=== PATIENT | male | born 1965 | race Caucasian/White ===

== ENCOUNTER → 2019-06-07 11:36 | Outpatient (CLI) | payer OTHER, SELFPAY ==
--- NOTE | ~2019-06-07 | XR_ITS ---
EXAMINATION: XR chest 2V EXAM DATE: 06/07/2019 11:48 INDICATION: Cough. TECHNIQUE: Frontal and lateral projections of the chest obtained and reviewed. Comparison is made to prior examination from 08/11/2016. FINDINGS: Right middle lobe granuloma. The lungs are otherwise clear. There are no pleural effusions . The cardiomediastinal silhouette is within normal limits. There is no pneumothorax suspected. Th e bones and soft tissues are unremarkable. IMPRESSION: No acute cardiopulmonary findings. Reviewed, dictated and finalized at location A. TH INSURANCE ASSESSOR
== END ==
PROVIDERS: PCP Physician Assistant; Visit Provider Physician Assistant
DX: R05 Cough (principal)
CPT/HCPCS: 71046

== ENCOUNTER 2020-09-24 06:15 | Emergency (ER) | payer OTHER, SELFPAY ==
--- NOTE | ~2020-09-24 | XR_ITS ---
EXAMINATION: XR chest 2V DATE: 09/24/2020 06:54 INDICATION: Chest pain TECHNIQUE: PA and lateral views of the chest are obtained. COMPARISON: 06/07/2019 FINDINGS: The lungs are free of acute opacities. A calcified nodule of the right middle lobe is consi stent with old granulomatous disease. There is no pleural effusion or pneumothorax. The cardiomediast inal silhouette is normal. There is mild thoracic spondylosis. IMPRESSION: 1. No acute cardiopulmonary abnormality. Reviewed, dictated and finalized at location A.
[2020-09-24 06:31] VITALS: BP 176/66; PULSE 82; RESP 16; TEMP 36.6; O2SAT 100
--- NOTE | 2020-09-24 06:43 | ECG_ITS ---
Measurements Intervals [place] Rate: 83 P: 15 OK: 156 QRS: -6 QRSD: 102 T: 10 QT: 353 QTc: 415 Interpretive Statements SINUS RHYTHM INCOMPLETE RIGHT BUNDLE BRANCH BLOCK BASELINE ARTIFACT- I, III, AVR, AVL BORDERLINE ECG Electronically Signed On 09-24-2020 8:19:46 CDT by Gonzalez Broussard D.O.
[2020-09-24 06:51] VITALS: PULSE 80
[2020-09-24 07:02] LABS: Basophils Absolute Auto 0.1 K/mm3 (0.0-0.1); Basophils Percent Auto 1.9 % (0.2-1.2); Eosinophils Absolute Auto 0.2 K/mm3 (0-0.3); Eosinophils Percent Auto 3.6 % (0-4.4); Hematocrit 42.2 % (42.0-52.0); Hemoglobin 14.1 g/dL (14.0-18.0); Immature Granulocyte Absolute 0.05 K/mm3 (0.00-0.031); Immature Granulocyte Percent A 1.2 % (0-0.5); Lymphocytes Absolute Auto 0.98 K/mm3 (0.9-3.2); Lymphocytes Percent Auto 23.3 % (18.3-44.2); Mean Corpuscular HGB Conc 33.4 g/dl (32-36); Mean Corpuscular Hemoglobin 31.5 pg (26-34); Mean Corpuscular Volume 94.2 fl (80-100); Mean Platelet Volume 8.4 fl (7.4-10.4); Monocytes Absolute Auto 0.4 K/mm3 (0.1-0.6); Monocytes Percent Auto 9.3 % (2.6-8.5); Neutrophils Absolute Auto 2.6 K/mm3 (1.3-6.7); Neutrophils Percent Auto 60.7 % (45.5-73.1); Platelet Count Result 236 k/mm3 (150-375); Red Blood Count 4.48 M/mm3 (4.6-6.20); Red Cell Distribution Width 11.9 % (11.5-14.5); White Blood Count 4.2 K/mm3 (4.5-10.0)
[2020-09-24 07:03] LABS: Anion Gap 10 mmol/L (8-16); Blood Urea Nitrogen 13 mg/dL (9-20); Calcium 9.1 mg/dL (8.4-10.2); Carbon Dioxide 25 mmol/L (22-30); Chloride 107 mmol/L (98-107); Estimated CRCL calculation 102 ml/min; Estimated Glomerular Filt Rate > 60; Glucose 95 mg/dL (75-110); Sodium 142 mmol/L (137-145)
[2020-09-24 07:15] LABS: Troponin I < 0.012 ng/mL (0.000-0.034)
[2020-09-24 07:18] LABS: INR 0.9; Prothrombin Time 13.1 Seconds (11.1-14.7)
[2020-09-24 07:19] LABS: Partial Thromboplastin Time 26.4 SECONDS (22.3-36.8)
--- NOTE | 2020-09-24 07:27 | ED.GENADULT ---
HPI - General Adult General Chief complaint: Chest Pain Stated complaint: Chest Pain Time Seen by Provider: 09/24/20 07:06 Source: patient History of Present Illness HPI narrative: Patient is a 55 y/o male complaining of midsternal chest pain since 2:30 AM this morning when he woke up. He describes his pain as a pulled muscle feeling. There is no pain radiation. He rates his pain as 2/10. Movement and turning makes his pain worse. He has no SOB or sweating. He states that he has chronic intermittent left arm numbness due to thoracic outlet syndrome. Related Data Home Medications Medication Instructions Recorded Confirmed losartan 09/24/20 sildenafil 09/24/20 Allergies Allergy/AdvReac Type Severity Reaction Status Date / Time atorvastatin Allergy Intermediate muscle Verified 05/20/20 10:33 aches bee venom protein (honey bee) AdvReac Mild Swelling Verified 05/20/20 10:33 Review of Systems Constitutional: Constitutional: Denies chills, Denies fever(s), Denies headache(s) and Denies weakness Eyes: Eyes: Denies blurry vision ENT: Denies headache(s) and Denies neck pain Cardiovascular: Cardiovascular: Reports chest pain and Denies dyspnea Respiratory: Respiratory: Denies cough and Denies dyspnea Gastrointestinal: Gastrointestinal: Denies abdominal pain, Denies diarrhea, Denies nausea and Denies vomiting Genitourinary: Genitourinary: Denies hematuria and Denies dysuria Musculoskeletal: Musculoskeletal: Denies back pain and Denies neck pain Neurologic: Denies headache(s), Reports numbness (left arm) and Denies weakness [facility] Family History Family History Father Diabetes mellitus Mother Family history of elevated blood lipids Family history of coronary artery disease Grandparent Carcinoma of colon Malignant neoplasm of prostate Other Family history of cardiovascular disease Social History Social History Smoking status: Former smoker Smoking end date: 05/03/93 Alcohol intake: current Exam Const: General: no acute distress and well developed Orientation/consciousness: oriented to person, oriented to place, oriented to time and patient oriented x3 HENMT: Head: normocephalic Ears: external ears normal General nose exam: Normal external nose present Eyes: General: appearance normal, both eyes and all related structures Conjunctivae: conjunctivae normal Neck: Neck: normal visual inspection and full ROM Chest: Chest palpation & inspection: normal inspection of the chest and no tenderness Resp: Effort & Inspection: normal respiratory effort Auscultation: clear to auscultation bilaterally Cardio: Rate: regular rate Rhythm: regular rhythm GI: GI Palp: No abdominal tenderness and Yes Soft to palpation Skin: General skin exam: normal color and turgor normal Neuro: General: oriented to person, oriented to place, oriented to time and patient oriented x3 Cognition (Neuro): normal cognition Extrem: General: normal to inspection, full ROM and no pedal edema Psych: Appearance: grossly normal Mental Status: mental status grossly normal Affect: normal affect Course Vital Signs Vital signs: Vital Signs Temperature 36.6 C 09/24/20 06:31 Pulse Rate 82 09/24/20 06:31 Respiratory Rate 16 09/24/20 06:31 Blood Pressure 176/66 H 09/24/20 06:31 Pulse Oximetry 100 09/24/20 06:31 Temperature 36.6 C 09/24/20 06:31 Pulse Rate 78 09/24/20 10:45 Respiratory Rate 18 09/24/20 10:45 Blood Pressure 149/103 H 09/24/20 10:45 Pulse Oximetry 96 09/24/20 10:45 Medical Decision Making Vital Signs Vital Signs: Vital Signs Temperature 36.6 C 09/24/20 06:31 Pulse Rate 82 09/24/20 06:31 Respiratory Rate 16 09/24/20 06:31 Blood Pressure 176/66 H 09/24/20 06:31 Pulse Oximetry 100 09/24/20 06:31 Temperature 36.6 C 09/24/20 06:31 Pulse
[2020-09-24 08:26] VITALS: BP 139/102; PULSE 78; RESP 24; O2SAT 98
[2020-09-24 08:40] VITALS: BP 162/110; PULSE 84; RESP 19; O2SAT 98
--- NOTE | 2020-09-24 09:11 | PC.NURSE ---
PT TOOK DAILY BLOOD PRESSURE MED PER DR FIDENCIO BARLOW.
[2020-09-24 10:01] VITALS: BP 156/104; PULSE 73; RESP 20; O2SAT 98
[2020-09-24 10:15] LABS: Troponin I < 0.012 ng/mL (0.000-0.034)
[2020-09-24 10:45] VITALS: BP 149/103; PULSE 78; RESP 18; O2SAT 96
== END 2020-09-24 10:48 | disposition home or self-care (01) ==
PROVIDERS: Emergency Medicine; Emergency Provider Emergency Medicine; PCP Family Medicine
DX: R07.2 Precordial pain (principal); I10 Essential (primary) hypertension; Z87.891 Personal history of nicotine dependence; I45.10 Unspecified right bundle-branch block
CPT/HCPCS: 36415; 71046; 80048; 84484; 85025; 85610; 85730; 93005; 99284

== ENCOUNTER 2020-10-23 08:18 | Outpatient (CLI) | payer OTHER, SELFPAY ==
--- NOTE | 2020-10-23 08:38 | EST_ITS ---
Patient Info Name: Cesar Hurtado Age: 55 years : 1965 Gender: Male Ht: 72 in Wt: 190 lbs BSA: 2.10 m2 Exam Date: 10/23/2020 9:01 AM Exam Location: [facility] Stress Patient Status: Outpatient Admit Date: 10/23/2020 Staff Ordering Physician: Noelle Pro DO Attending Provider: Noelle Pro DO Exercise Technologist: Deloris Lyn CT Exercise Physician: Gonzalez Broussard DO Exam Type: CA stress test treadmill Study Info A treadmill exercise stress test was performed. Summary 1. 1. Negative Matias exercise stress test for ischemic ST changes by ECG criteria. 2. 2. Good functional capacity, achieving 12 METs of workload. 3. 3. Appropriate HR response to exercise. 4. 4. Appropriate HR recovery at 1 minute post exercise. 5. 5. No imaging with stress testing. 6. 6. Patient informed of the above results. Protocol: Matias Stress ECG Details Stage: REST Duration (min): 1 min : 21 sec Speed (mph): 0.0 Grade (%): 0 HR (bpm): 79 SBP (mmHg): 122 DBP (mmHg): 89 METS: --- Stage: REST Duration (min): 9 min : 52 sec Speed (mph): 0.0 Grade (%): 0 HR (bpm): 92 SBP (mmHg): 122 DBP (mmHg): 89 METS: --- Stage: STAGE 1 Duration (min): 1 min : 0 sec Speed (mph): 1.7 Grade (%): 10 HR (bpm): 107 SBP (mmHg): 122 DBP (mmHg): 89 METS: --- Stage: STAGE 1 Duration (min): 2 min : 0 sec Speed (mph): 1.7 Grade (%): 10 HR (bpm): 112 SBP (mmHg): 122 DBP (mmHg): 89 METS: --- Stage: STAGE 1 Duration (min): 3 min : 0 sec Speed (mph): 1.7 Grade (%): 10 HR (bpm): 113 SBP (mmHg): 168 DBP (mmHg): 90 METS: --- Stage: STAGE 2 Duration (min): 1 min : 0 sec Speed (mph): 2.5 Grade (%): 12 HR (bpm): 118 SBP (mmHg): 168 DBP (mmHg): 90 METS: --- Stage: STAGE 2 Duration (min): 2 min : 0 sec Speed (mph): 2.5 Grade (%): 12 HR (bpm): 123 SBP (mmHg): 178 DBP (mmHg): 94 METS: --- Stage: STAGE 2 Duration (min): 3 min : 0 sec Speed (mph): 2.5 Grade (%): 12 HR (bpm): 123 SBP (mmHg): 178 DBP (mmHg): 94 METS: --- Stage: STAGE 3 Duration (min): 1 min : 0 sec Speed (mph): 3.4 Grade (%): 14 HR (bpm): 133 SBP (mmHg): 179 DBP (mmHg): 94 METS: --- Stage: STAGE 3 Duration (min): 2 min : 0 sec Speed (mph): 3.4 Grade (%): 14 HR (bpm): 138 SBP (mmHg): 179 DBP (mmHg): 94 METS: --- Stage: STAGE 3 Duration (min): 3 min : 0 sec Speed (mph): 3.4 Grade (%): 14 HR (bpm): 144 SBP (mmHg): 185 DBP (mmHg): 91 METS: --- Stage: STAGE 4 Duration (min): 1 min : 0 sec Speed (mph): 4.2 Grade (%): 16 HR (bpm): 166 SBP (mmHg): 185 DBP (mmHg): 91 METS: --- Stage: STAGE 4 Duration (min): 1 min : 0 sec Speed (mph): 4.2 Grade (%): 16 HR (bpm): 166 SBP
== END 2020-10-23 08:19 | disposition home or self-care (01) ==
PROVIDERS: PCP Family Medicine; Visit Provider Family Medicine
DX: R07.9 Chest pain, unspecified (principal); R20.0 Anesthesia of skin
CPT/HCPCS: 93017

== ENCOUNTER 2020-10-30 07:25 | Outpatient (CLI) | payer OTHER, SELFPAY ==
--- NOTE | 2020-10-30 07:35 | ECHO_ITS ---
Patient Info Name: Cesar Hurtado Age: 55 years : 1965 Gender: Male Ht: 72 in Wt: 190 lbs BSA: 2.10 m2 HR: 70 bpm BP: 130 / 88 mmHg Technical Quality: Good Exam Date: 10/30/2020 7:55 AM Exam Location: [facility] Patient Status: Outpatient Admit Date: 10/30/2020 Staff Ordering Physician: Noelle Pro DO Photographic Equipment Assembler: Alejandro Schaefer RDCS, RT Attending Provider: Noelle Pro DO Referring Physician: Morteza CASTELLANOS; Exam Type: CA echo doppler color flow Study Info Indications R07.9 - Chest pain, unspecified Complete two-dimensional, color flow and Doppler transthoracic echocardiogram is performed. Strain analysis performed. Summary 1. Complete two-dimensional, color flow and Doppler transthoracic echocardiogram is performed. 2. Left ventricular chamber dimension is normal. 3. Left ventricular systolic function is normal, estimated at 60-65%. 4. The left ventricular diastolic function is normal. 5. E/e' 7 is not elevated. 6. Global longitudinal strain is normal at -17.4%. 7. There is trace tricuspid valve regurgitation. 8. No pulmonary hypertension, estimated pulmonary arterial systolic pressure is 24 mmHg. Left Ventricle E/e' 7 is not elevated. Global longitudinal strain is normal at -17.4%. Left ventricular chamber dimension is normal. Left ventricular systolic function is normal, estimated at 60-65%. The left ventricular diastolic function is normal. Right Ventricle Right ventricular systolic function is normal and with normal TAPSE 2.1 cm. Right ventricular chamber dimension is normal. Left Atria Left atrial chamber dimension is normal. Right Atria Right atrial chamber dimension is normal. Aortic Valve The aortic valve is trileaflet. There is no aortic valve stenosis. There is no aortic valve regurgitation. Pulmonic Valve There is no pulmonic regurgitation. Mitral Valve There is no mitral valve stenosis. There is no mitral valve regurgitation. Tricuspid Valve There is trace tricuspid valve regurgitation. No pulmonary hypertension, estimated pulmonary arterial systolic pressure is 24 mmHg. Pericardium/Pleural There is no pericardial effusion. Inferior Vena Cava Normal inferior vena cava with >50% collapse upon inspiration consistent with normal right atrial pressure, 5 mmHg. Aorta The aortic root size at the sinus of Valsalva is normal. Left Ventricular Outflow Tract Name Value Normal LVOT 2D LVOT Diameter 2.0 cm LVOT Doppler LVOT Peak Gradient 4 mmHg LVOT Mean Gradient 2 mmHg LVOT VTI 19 cm LVOT VTI/AV VTI Ratio 0.8 LVOT Stroke Volume 60 ml LVOT CO 4.2 l/min LVOT CI 2.0 l/min/m2 Mitral Valve Name Value Normal MV Doppler ---------
== END 2020-10-30 07:26 | disposition home or self-care (01) ==
PROVIDERS: PCP Family Medicine; Visit Provider Family Medicine
DX: R07.9 Chest pain, unspecified (principal)
CPT/HCPCS: 93306

== ENCOUNTER → 2021-03-01 00:57 | Outpatient (CLI) | payer OTHER, SELFPAY ==
[2021-03-01 18:23] LABS: SARS-CoV-2 RNA PCR Negative
== END ==
PROVIDERS: PCP Family Medicine; Visit Provider Physician Assistant
DX: J06.9 Acute upper respiratory infection, unspecified (principal); Z20.822 Contact with and (suspected) exposure to COVID-19
CPT/HCPCS: C9803; U0003; U0005

== ENCOUNTER → 2021-11-10 09:50 | Outpatient (CLI) | payer OTHER, SELFPAY ==
--- NOTE | ~2021-11-10 | US_ITS ---
US scrotum doppler INDICATION: Orchitis for one and a half months. No known injury. TECHNIQUE: Testicular sonogram utilizing grayscale and color Doppler FINDINGS: The testes are normal in size and appearance. No focal lesions are seen. 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 The right testes measures 4.4 x 2.2 x 2.8 cm centimeters, and the left t estis measures 4.3 x 2.4 x 2.8 cm cm. There is normal vascular flow to both testes. There is a right epididymal cyst measuring 4 mm. There is a small right hydrocele. IMPRESSION: 1. Testicular microlithiasis. 2: Small right epididymal cyst measuring 4 mm. 3: Small right hydrocele. Reviewed, dictated and finalized at location A.
== END ==
PROVIDERS: PCP Family Medicine; Visit Provider Urology
DX: N45.2 Orchitis (principal); N50.89 Other specified disorders of the male genital organs; N50.3 Cyst of epididymis; N43.3 Hydrocele, unspecified
CPT/HCPCS: 76870; 93976

== ENCOUNTER → 2022-05-25 10:27 | Outpatient (CLI) | payer OTHER, SELFPAY ==
--- NOTE | ~2022-05-25 | US_ITS ---
Testicular ultrasound with doppler. Indication: Epididymal cyst. Technique: Real-time sonography the scrotum was performed. Color flow Doppler and Doppler spectral an alysis were performed. Findings: The testes are homogeneous in echotexture bilaterally. There is no evidence of an intrates ticular mass. The right testis measures 4.5 x 2.2 x 3.4 cm and the left 4.2 x 2.5 x 3.2 cm. There is color-flow seen to both testes. Arterial and venous spectral waveforms are seen in both testes. There is no sonographic evidence of torsion. 4 mm right epididymal head cyst present. Left epididymis unre markable. Small right hydrocele present. Impression: 4 mm right epididymal head cyst or spermatocele. Small right hydrocele. No testicular mass or torsion. Reviewed, dictated and finalized at [facility]. BYTERIAN CLERGY Impression: 4 mm right epididymal head cyst or spermatocele. Small right hydrocele. No testicular mass or torsion.
== END ==
PROVIDERS: PCP Family Medicine; Visit Provider Urology
DX: N50.3 Cyst of epididymis (principal); N43.3 Hydrocele, unspecified
CPT/HCPCS: 76870; 93976

== ENCOUNTER → 2022-06-08 15:26 | Outpatient (CLI) | payer OTHER, SELFPAY ==
--- NOTE | ~2022-06-08 | XR_ITS ---
EXAMINATION: XR chest 2V DATE: 06/08/2022 15:35 INDICATION: 2 weeks of cough TECHNIQUE: PA and lateral views of the chest were obtained. COMPARISON: Chest radiograph dated 09/24/2020 FINDINGS: Calcified nodule in the right lower lung zone and calcified right hilar lymph nodes consistent with o ld granulomatous disease. No other airspace opacities, pulmonary edema, pleural effusion or pneumotho rax. The cardiomediastinal silhouette is normal. Visualized bones and soft tissues are unremarkable. IMPRESSION: 1. No acute cardiopulmonary disease. Reviewed, dictated and finalized at location A. WEIGHER
== END ==
PROVIDERS: PCP Family Medicine; Visit Provider Family Medicine
DX: R05.9 Cough, unspecified (principal)
CPT/HCPCS: 71046

== ENCOUNTER 2023-11-05 15:36 | Outpatient (CLI) | payer OTHER, SELFPAY ==
[2023-11-05 18:24] LABS: Basophils Absolute Auto 0.1 K/mm3 (0.0-0.1); Basophils Percent Auto 1.1 % (0.2-1.2); Eosinophils Absolute Auto 0.1 K/mm3 (0-0.3); Eosinophils Percent Auto 0.8 % (0-4.4); Hematocrit 43.2 % (42.0-52.0); Hemoglobin 14.4 g/dL (14.0-18.0); Immature Granulocyte Absolute 0.06 K/mm3 (0.00-0.031); Immature Granulocyte Percent A 0.7 % (0-0.5); Lymphocytes Absolute Auto 1.42 K/mm3 (0.9-3.2); Mean Corpuscular HGB Conc 33.3 g/dl (32-36); Mean Corpuscular Hemoglobin 31.4 pg (26-34); Mean Corpuscular Volume 94.3 fl (80-100); Mean Platelet Volume 8.6 fl (7.4-10.4); Monocytes Absolute Auto 0.9 K/mm3 (0.1-0.6); Monocytes Percent Auto 9.8 % (2.6-8.5); Neutrophils Absolute Auto 6.3 K/mm3 (1.3-6.7); Neutrophils Percent Auto 71.6 % (45.5-73.1); Platelet Count Result 326 k/mm3 (150-375); Red Blood Count 4.58 M/mm3 (4.6-6.20); Red Cell Distribution Width 11.9 % (11.5-14.5); White Blood Count 8.9 K/mm3 (4.5-10.0)
[2023-11-05 19:53] LABS: Folic Acid 16.6 ng/mL (2.76->20)
[2023-11-09 09:19] LABS: Vitamin D 1,25 (OH)2 Total 54 pg/mL (18-72); Vitamin D2 1,25 (OH)2 <8 pg/mL; Vitamin D3 1,25 (OH)2 54 pg/mL
== END 2023-11-05 15:37 | disposition home or self-care (01) ==
LOC: ANHGOSHLAB 15:37
PROVIDERS: PCP Family Medicine; Visit Provider Student in an Organized Health Care Education/Training Program
DX: R20.2 Paresthesia of skin (principal); K13.79 Other lesions of oral mucosa
CPT/HCPCS: 36415; 82607; 82652; 82746; 85025

== ENCOUNTER 2024-04-11 10:35 | Outpatient (CLI) | payer OTHER, SELFPAY ==
--- NOTE | ~2024-04-11 | XR_ITS ---
Thoracic spine: Clinical Indication: Back pain AP and lateral views were performed. No fracture is seen. There is normal alignment of the vertebrae. The intervertebral disc spaces appe ar normal. Paravertebral soft tissues appear normal. Impression: No significant abnormalities noted. Reviewed, dictated and finalized at [facility]. NESS PROCESS MANAGER Impression: No significant abnormalities noted.
--- NOTE | ~2024-04-11 | XR_ITS ---
Lumbosacral Spine: AP and lateral views Clinical History: Pain Findings: The normal lordotic curve is maintained. The vertebral bodies and posterior elements are i ntact. There are mild degenerative disc changes in lumbar spine. There is moderate facet arthropathy throughout the lumbar spine. The sacroiliac joints are normally outlined. Impression: Mild to moderate degenerative spondylosis, as above. Reviewed, dictated and finalized at location . PROCESSING CLERK Impression: Mild to moderate degenerative spondylosis, as above.
== END 2024-04-11 10:36 | disposition home or self-care (01) ==
PROVIDERS: PCP Family Medicine; Visit Provider Nurse Practitioner
DX: M47.816 Spondylosis without myelopathy or radiculopathy, lumbar region (principal); M54.9 Dorsalgia, unspecified; M54.50 Low back pain, unspecified
CPT/HCPCS: 72072; 72100

== ENCOUNTER 2024-08-10 09:24 | Outpatient (CLI) | payer OTHER, SELFPAY ==
--- OUTSIDE RECORDS SUMMARY | 2024-08-10 09:44 | XMS_ITS | Clinical Summary ---
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 Gender Identity Not on file Sexual Orientation Not on file Plan of Treatment Health Maintenance Due Date Last Done Comments Hepatitis C Virus (HCV) Screening 1965 TdaP Immunization 1965 Hepatitis B Immunization (1 of 3 - 19+ 3-dose series) 07/31/1986 Colonoscopy 07/31/2012 Colorectal Cancer Screening 07/31/2012 Cologuard 07/31/2017 Immunochemical Fecal Occult Blood 07/31/2017 Pneumococcal Immunization (5 0+ years) (1 of 1 - PCV) 07/31/2017 Zoster Immunization (1 of 2) 07/31/2017 PSA Discussion 07/31/2022 Influenza Immunization (#1) 01/02/202406/2018, 04/11/2018 SARS-COV-2 Immunization ( season) 2024 Respiratory Syncytial Virus (RSV) Immunization (Adult) (1 - 1-dose 75+ series) 07/31/2042 Meningococcal Immunization (ACWY) Aged Out No longer eligible b ased on patient's age to complete this topic Pneumococcal Immunization Combined Aged Out No longer eligible b ased on patient's age to complete this topic Rotavirus Immunization Aged Out No lo nger eligible based on patient's age to complete this topic
--- OUTSIDE RECORDS SUMMARY | 2024-08-10 09:44 | XMS_ITS | Referral Summary ---
Author Organization [facility] [address] Address [address] [place] [address] Care Team Providers Care Regulatory Lead Name Role Phone Noelle Pro DO Primary Care Provider [phone] Encounters Date Type Department Care Team Description 08/02/2024 5:36 PM CDT - 08/02/2024 9:40 PM CDT Emergency [facility] Emergency Department [address] [place] [address] Hypertension, unspecified type (Primary Dx); Chest pain, unspecified type Discharge Disposition: Discharge to home or self care 05/12/2024 Telephone [facility] [place] [address] [place] [address] Mable Dobbs MA 05/12/2024 10:02 AM MULTI CRAFT MAINTENANCE TECHNICIAN - 05/12/2024 11:59 PM MULTI CRAFT MAINTENANCE TECHNICIAN Hospital Encounter [facility] Imaging Center [address] [place] [address] Fever, unspecified fever cause; Acute cough; Lower respiratory infection Discharge Disposition: Discharge to home or self care 05/12/2024 8:45 AM MULTI CRAFT MAINTENANCE TECHNICIAN Office Visit [facility] [place] [address] Shonda Romo NP Suspected COVID-19 virus infection (Primary Dx); Sore throat; Fever, unspecified fever cause; Acute cough; Lower respiratory infection from Last 3 Months Allergies Active Allergy Reactions Criticality Noted Date Comments Venom-Honey Bee Medications hydroCHLOROthia zide (HYDRODIURIL) 25 mg tablet Take 1 tablet (25 mg total) by mouth daily 03/25/2021 Active losartan (COZAAR) 50 mg tablet Take 1 tablet (50 mg total) by mouth daily 03/25/2021 Active metoprolol XL (TOPROL-XL) 25 mg extended release tablet Take 0.5 tablets (12.5 mg total) by mouth daily 05/13/2021 Active Livalo 2 mg tablet 04/01/2021 Active sildenafiL (VIAGRA) 50 mg tablet 04/20/2021 Active benzonatate (TESSALON) 100 mg capsuleIndicati ons:Cough Take 1 capsule (100 mg total) by mouth 3 (three) times a day as needed for cough 42 capsule 05/12/2024 Active Active Problems Problem Noted Date Diagnosed Date Thoracic outlet syndrome 06/30/2012 Cervicalgia 05/31/2012 Social History Tobacco Use Types Packs/Day Years Used Date Smoking Tobacco: Former Personal Safety Answer Date Recorded Have you ever been in or are you currently in a harmful physical or emotional relationship or is someone making you feel afraid or unsafe? Denies 08/02/2024 Sex and Gender Information Value Date Recorded Sex Assigned at Not on file Legal Sex Male 10:10 AM MULTI CRAFT MAINTENANCE TECHNICIAN Gender Identity Male 05/24/2021 7:54 AM MULTI CRAFT MAINTENANCE TECHNICIAN Sexual Orientation Straight 05/24/2021 7: 54 AM MULTI CRAFT MAINTENANCE TECHNICIAN Last Filed Vital Signs Vital Sign Reading Time Taken Comments Blood Pressure 141/96 08/02/2024 9:35 PM CDT Pulse 75 08/02/2024 9:25 PM CDT Temperature 36.6 C (97.8 F) 08/02/2024 4:10 PM CDT Respiratory Rate 20 08/02/2024 9:25 PM CDT Oxygen Saturation 97% 08/02/2024 9:25 PM CDT Inhaled Oxygen Concentration - - Weight 90.7 kg (200 lb) 08/02/2024 4:10 PM CDT Height 182.9 cm (6') 05/12/2024 8:43 AM MULTI CRAFT MAINTENANCE TECHNICIAN Body Mass Index 27.12 05/12/2024 8:43 AM MULTI CRAFT MAINTENANCE TECHNICIAN Plan of Treatment Not on file Procedures Procedure Name Priority Date/Time Associated Diagnosis Comments TROPONIN T HIGH-SENSITIVITY 4-HR Timed 08/02/2024 8:26 PM CDT TROPONIN T HIGH-SENSITIVITY 2-HOUR Timed 08/02/2024 5:52 PM CDT XR CHEST 1 VIEW ED 08/02/2024 4:25 PM CDT EGFR STAT 08/02/2024 4:21 PM CDT DIFFERENTIAL AUTO STAT 08/02/2024 4:2 1 PM CDT TROPONIN T HIGH-SENSITIVITY SERIES (BASELINE, 2HR, 4HR, 6HR) STAT 08/02/2024 4:21 PM CDT COMPREHENSIVE METABOLIC PANEL STAT 08/02/2024 4:21 PM CDT CBC WITH AUTO DIFFERENTIAL STAT 08/02/2024 4:21 PM CDT ECG 12-LEAD STAT 08/02/2024 4:15 PM CDT XR CHEST PA LATERAL 2 VIEWS Schedule NEVILLE, Read NEVILLE (Appt Today, Awaiting Results) 05/12/2024 10:13 AM MULTI CRAFT MAINTENANCE TECHNICIAN Fever, unspecified fever cause Acute cough Lower respiratory infection POC INFLUENZA A/B, COVID-19 ANTIGEN Routine 05/12/2024 8:55 AM MULTI CRAFT MAINTENANCE TECHNICIAN Suspected COVID-19 virus infection Sore throat POCT RAPID STREP Routine 05/12/2024 8:54 AM MULTI CRAFT MAINTENANCE TECHNICIAN Suspected COVID-19 virus infection Sore throat from Last 3 Months Results * Troponin T high-sensitivity 4-hour (08/02/2024 8:26 PM CDT) Trop T hs <6 <=22 ng/L Comment: Interpretive Data For further hscTnT resources including the diagnostic algorithm and an aid in interpretation, copy and paste this link: https://nrl.YeHive.org/show/hsTrop Current Interpretive Data last revised 2020. Trop T hs delta 0 ng/L [facility] ([place]) Trop T hs interp Insignificant [facility] ([place]) Blood 08/02/2024 8:26 PM CDT 08/02/2024 8:45 PM CDT Moe Carpenter MD LAB BLOOD ORDERABLES Final R esult Performing Organization Address [facility] Co de Phone Number ARNAUD JONES ([place]) 1 [facility] [place] [address] * Troponin T high-sensitivity 2-hour (08/02/2024 5:52 PM CDT) Trop T hs <6 <=22 ng/L Comment: Interpretive Data For further hscTnT resources including the diagnostic algorithm and an aid in interpretation, copy and paste this link: https://nrl.YeHive.org/show/hsTrop Current Interpretive Data last revised 2020. Trop T hs delta 0 ng/L [facility] ([place]) Trop T hs interp Insignificant [facility] ([place]) Blood 08/02/2024 5:52 PM CDT 08/02/2024 5:56 PM CDT Moe Carpenter MD LAB BLOOD ORDERABLES Final R esult Performing Organization Address City/[facility] Co de Phone Number ARNAUD JONES ([place]) 1 [facility] [place] [address] * XR Chest 1 Vw Portable (if patient condition/safety warrant portable) (08/02/2024 4:25 PM CDT) Anatomical Region Laterality Modality Body, Chest N/A Computed Radiogr aphy 08/02/2024 4:52 PM CDT Narrative 08/02/2024 4:53 PM CDT EXAM DESCRIPTION: XR CHEST 1 VIEW REASON FOR STUDY: chest pain Pt states that he has had 4-5 days of mid sternal chest pain. Pt states has appointment tomorrow but today checked bp and it was high TECHNIQUE: 1 radiographic view(s) of the chest. COMPARISON: 05/12/2024 FINDINGS: LUNGS: No focal opacity, pleural effusion, or pneumothorax. HEART/MEDIASTINUM: Cardiac silhouette normal in size. Mediastinal and hilar contours appear normal. LINES/TUBES: None. BONES: No acute osseous abnormality. IMPRESSION: No acute cardiopulmonary abnormality. THIS IS AN ELECTRONICALLY VERIFIED FINAL REPORT 08/02/2024 4:53 PM - Electronically signed by Arnoldo Araiza M.D. KR: HERNAN Report ID: [id number] Reading Location: [id number] Procedure Note Arnoldo Araiza MD - 08/02/2024 EXAM DESCRIPTION: XR CHEST 1 VIEW REASON FOR STUDY: chest pain Pt states that he has had 4-5 days of mid sternal chest pain. Pt stateshas appointment tomorrow but today checked bp and it was high TECHNIQUE: 1 radiographic view(s) of the chest. COMPARISON: 05/12/2024 FINDINGS: LUNGS: No focal opacity, pleural effusion, or pneumothorax. HEART/MEDIASTINUM: Cardiac silhouette normal in size. Mediastinal andhilar contours appear normal. LINES/TUBES: None. BONES: No acute osseous abnormality. IMPRESSION: No acute cardiopulmonary abnormality. THIS IS AN ELECTRONICALLY VERIFIED FINAL REPORT 08/02/2024 4:53 PM - Electronically signed by Arnoldo Araiza M.D. KR: HERNAN Report ID: [id number] Reading Location: [id number] Moe Carpenter MD IMG XR PROCEDURES Final Resu lt * Troponin T high-sensitivity series (baseline, 2hr, 4hr, 6hr) (08/02/2024 4:21 PM CDT) Trop T hs <6 <=22 ng/L Comment: Interpretive Data For further hscTnT resources including the diagnostic algorithm and an aid in interpretation, copy and paste this link: https://nrl.testcatalog.org/show/hsTrop Current Interpretive Data last revised 2020. Blood 08/02/2024 4:21 PM CDT 08/02/2024 4:38 PM CDT Moe Carpenter MD LAB BLOOD ORDERABLES Final R esult Performing Organization Address City/[facility] Co de Phone Number [facility] ([place]) 1 [facility] [place] [address] * eGFR (08/02/2024 4:21 PM CDT) Pathologist [facility] eGFR >90 >=60 mL/min/1. 73 m2 Comment: Interpretive Data Reference Interval Normal >/= 90 mL/min/1.73m2 Mildly decreased* 60 - 89 mL/min/1.73m2 Mildly to moderately decreased 45 - 59 mL/min/1.73m2 Moderately to severely decreased 30 - 44 mL/min/1.73m2 Severely decreased 15 - 29 mL/min/1.73m2 Kidney Failure < 15 mL/min/1.73m2 *Relative to young adult level Estimated glomerular filtration rate is determined by the 2020 CKD-EPI equation recommended by the National Kidney Foundation (A Unifying Approach to GFR Estimation: Recommendations of the NKF-ASK Task Force on Reassessing the Inclusion of Race in Diagnosing Kidney Disease, JASN 2020). The CKD-EPI equation should not be used for patients with unstable renal function and has not been validated in children and those over 70. Current interpretive data was last reviewed 2021. Blood 08/02/2024 4:21 PM CDT 08/02/2024 4:38 PM CDT Moe Carpenter MD LAB BLOOD ORDERABLES Final R esult Performing Organization Address City/[facility]/ZIP Co de Phone Number [facility] ([place]) 1 [facility] Department [place] [address] * (ABNORMAL) Differential, auto (08/02/2024 4:21 PM CDT) Neutrophil abs 4.58 1.50 - 6.50 K/cumm Imm gran abs 0.09 0.00 - 0.10 K/cumm [facility] ([place]) Lymphocyte abs 1.72 0.80 - 3.30 K/cumm [facility] ([place]) Monocyte abs 0.66 0.20 - 0.80 K/cumm [facility] ([place]) Eosinophil abs 0.16 0.00 - 0.50 K/cumm [facility] ([place]) Basophil abs 0.11(H) 0.00 - 0.10 K/cumm [facility] ([place]) Neutrophil pct 62.6 % [facility] ([place]) Comment: Interpretive Data Percent cell count reference ranges are not reported, since discordance with absolute values may lead to misinterpretation of CBC data. Current Interpretive Data was last revised on 2017. Imm gran pct 1.2 % [facility] ([place]) Comment: Interpretive Data Percent cell count reference ranges are not reported, since discordance with absolute values may lead to misinterpretation of CBC data. Current Interpretive Data was last revised on 2017. Lymphocyte pct 23.5 % [facility] ([place]) Comment: Interpretive Data Percent cell count reference ranges are not reported, since discordance with absolute values may lead to misinterpretation of CBC data. Current Interpretive Data was last revised on 2017. Monocyte pct 9.0 % [facility] ([place]) Comment: Interpretive Data Percent cell count reference ranges are not reported, since discordance with absolute values may lead to misinterpretation of CBC data. Current Interpretive Data was last revised on 2017. Eosinophil pct 2.2 % [facility] ([place]) Comment: Interpretive Data Percent cell count reference ranges are not reported, since discordance with absolute values may lead to misinterpretation of CBC data. Current Interpretive Data was last revised on 2017. Basophil pct 1.5 % [facility] ([place]) Comment: Interpretive Data Percent cell count reference ranges are not reported, since discordance with absolute values may lead to misinterpretation of CBC data. Current Interpretive Data was last revised on 2017. Blood 08/02/2024 4:21 PM CDT 08/02/2024 4:38 PM CDT Moe Carpenter MD LAB BLOOD ORDERABLES Final R esult [facility] ([place]) 1 [facility] [place] [address] * (ABNORMAL) CBC with auto differential (08/02/2024 4:21 PM CDT) WBC 7.32 3.80 - 9.90 K/cumm Hgb 14.4 13.0 - 17.5 g/dL [facility] ([place]) Hct 41.1 38.9 - 50.3 % [facility] ([place]) Plt 317 150 - 400 K/cumm [facility] ([place]) MPV 8.5(L) 9.1 - 12.3 fL [facility] ([place]) RBC 4.49 4.30 - 5.80 M/cumm [facility] ([place]) MCV 91.5 81.3 - 96.4 fL [facility] ([place]) MCH 32.1 27.1 - 33.3 pg [facility] ([place]) MCHC 35.0 32.3 - 35.7 g/dL [facility] ([place]) RDW CV 12.1 11.1 - 14.9 % [facility] ([place]) RDW SD 40.4 35.7 - 48.1 fL [facility] ([place]) NRBC abs 0.00 0.00 - 0.01 K/cumm [facility] ([place]) Blood Venous blood specimen / Unknown 08/02/2024 4:21 PM CDT 08/02/2024 4:38 PM CDT Moe Carpenter MD LAB BLOOD ORDERABLES Final R esult Performing Organization Address City/[facility]/ZIP Co de Phone Number [facility] ([place]) [address] Department [place] [address] * (ABNORMAL) Comprehensive metabolic panel (08/02/2024 4:21 PM CDT) Sodium 135 135 - 145 mmol/L Potassium, pl 3.8 3.3 - 4.9 mmol/L [facility] ([place]) Chloride 98 97 - 110 mmol/L [facility] ([place]) CO2 21(L) 22 - 32 mmol/L [facility] ([place]) Anion gap 16(H) 2 - 15 mmol/L [facility] ([place]) BUN 14 6 - 25 mg/dL [facility] ([place]) Creatinine 0.92 0.80 - 1.30 mg/dL [facility] ([place]) Glucose 101 70 - 199 mg/dL [facility] ([place]) Comment: Interpretive Data Fasting glucose >/= 126 mg/dl is diagnostic for diabetes. Fasting is defined as no caloric intake for at least 8 hours. Fasting glucose between 100 mg/dl to 125 mg/dl is diagnostic of prediabetes. In a patient with classic symptoms of hyperglycemia or hyperglycemic crisis, a random glucose >/= 200 mg/dl is diagnostic for diabetes. In the absence of unequivocal hyperglycemia, results should be confirmed by repeat testing. The classification and Diagnosis of Diabetes Diabetes Care 2021; 46: S19-S40. Current interpretive data was last revised 2022. Calcium 9.7 8.5 - 10.3 mg/dL [facility] ([place]) Bilirubin, total 0.5 0.1 - 1.2 mg/dL [facility] ([place]) Protein, pl 7.1 6.5 - 8.5 g/dL [facility] ([place]) Albumin 4.7 3.5 - 5.0 g/dL [facility] ([place]) Alk phos 38(L) 40 - 130 Units/L [facility] ([place]) ALT 18 7 - 55 Units/L [facility] ([place]) AST 18 10 - 50 Units/L [facility] ([place]) Comment:Slightly Hemolyzed S pecimen Blood 08/02/2024 4:21 PM CDT 08/02/2024 4:38 PM CDT Moe Carpenter MD LAB BLOOD ORDERABLES Final R esult Performing Organization Address City/[facility]/ZIP Co de Phone Number ARNAUD MUHAMMAD) 1 [facility] Department [place] [address] * ECG 12 lead (08/02/2024 4:15 PM CDT) 08/02/2024 4:15 PM CDT Narrative [facility] 08/03/2024 7:16 AM CDT Vent Rate: 78 bpm RR Interval: 760 msec SD Interval: 165 msec QRS Duration: 106 msec QT Interval: 383 msec QTC Interval: 417 msec P-R-T [place]: 52 - -10 - 22 degrees IMPRESSION: SINUS RHYTHM WITH OCCASIONAL VENTRICULAR PREMATURE COMPLEXES BORDERLINE ECG Electronically Signed By: Trell Mac MD Moe Carpenter MD ECG ORDERABLES Final Result Performing Organization Address [facility] de Phone Number [employer] [facility] * XR Chest Pa Lateral 2 Views (05/12/2024 10:13 AM MULTI CRAFT MAINTENANCE TECHNICIAN) Anatomical Region Laterality Modality Body, Chest N/A Computed Radiogr aphy 05/12/2024 10:4 6 AM MULTI CRAFT MAINTENANCE TECHNICIAN Narrative 05/12/2024 10:48 AM MULTI CRAFT MAINTENANCE TECHNICIAN EXAM DESCRIPTION: XR CHEST PA LATERAL 2 VIEWS REASON FOR STUDY: Cough, fever Cough/phlegm x 1.5 weeks. R/O pneumonia Previous smoker. No conditions TECHNIQUE: Frontal and lateral radiographic views of the chest acquired. COMPARISON: None available FINDINGS: LUNGS/PLEURA: No focal consolidation or pneumothorax. No pleural effusion. There is a granuloma in the right lower lobe. HEART/MEDIASTINUM: Heart size is normal. Normal mediastinal and hilar contours. HARDWARE/LINES/TUBES: None. BONES: No acute findings. OTHER: No other significant finding. IMPRESSION: No acute cardiopulmonary abnormality. THIS IS AN ELECTRONICALLY VERIFIED FINAL REPORT 05/12/2024 10:48 AM - Electronically signed by Arnoldo Barajas M.D. KN: CLARA Report ID: [id number] Reading Location: [id number] Procedure Note Arnoldo Barajas MD - 05/12/2024 EXAM DESCRIPTION: XR CHEST PA LATERAL 2 VIEWS REASON FOR STUDY: Cough, fever Cough/phlegm x 1.5 weeks. R/O pneumonia Previous smoker. Noconditions TECHNIQUE: Frontal and lateral radiographic views of the chestacquired. COMPARISON: None available FINDINGS: LUNGS/PLEURA: No focal consolidation or pneumothorax. No pleuraleffusion. There is a granuloma in the right lower lobe. HEART/MEDIASTINUM: Heart size is normal. Normal mediastinal and hilar contours. HARDWARE/LINES/TUBES: None. BONES: No acute findings. OTHER: No other significant finding. IMPRESSION: No acute cardiopulmonary abnormality. THIS IS AN ELECTRONICALLY VERIFIED FINAL REPORT 05/12/2024 10:48 AM - Electronically signed by Arnoldo Barajas M.D. KN: CLARA Report ID: [id number] Reading Location: [id number] Shonda Romo [facility] IMG XR PROCEDURES Final Re sult * POC Influenza A/B, COVID-19 antigen (05/12/2024 8:55 AM MULTI CRAFT MAINTENANCE TECHNICIAN) [facility] Influenza A Ag, POC Negative Negative [facility] Influenza B Ag, POC Negative Negative [facility] COVID-19 Ag POC Presumptive Negative Presumptive Negative, Invalid [facility] Nasal 05/12/2024 8:55 AM MULTI CRAFT MAINTENANCE TECHNICIAN Shonda Romo NP POINT OF CARE TEST ORDERAB LES Final Result [facility] [address] [place] [address], [facility] * POCT rapid strep A (05/12/2024 8:54 AM MULTI CRAFT MAINTENANCE TECHNICIAN) Rapid Strep A, POC Negative Negative Swab 05/12/2024 8:54 AM MULTI CRAFT MAINTENANCE TECHNICIAN Shonda Romo NP POINT OF CARE TEST ORDERAB LES Final Result from Last 3 Mon[address] Insurance [facility] CHOICE PLUS [facility] HMO/PPO Address: [address] [address] [place] [address] [facility] [employer] Care Teams Regulatory Lead Relationship Specialty Start Date End Date Noelle Pro DO PCP - General Family Medicine 05/13/21
--- OUTSIDE RECORDS SUMMARY | 2024-08-10 09:44 | XMS_ITS | Clinical Summary ---
Author Organization [facility] [place] [address] Address [address] [place] [address] Care Team Providers Care Supervisor Graphite Name Role Phone Noelle Pro DO Primary Care Provider [phone] Allergies Active Allergy Reactions Criticality Noted Date [...] Date Thoracic outlet syndrome 06/30/2012 Cervicalgia 05/31/2012 Encounters Date Type Department Care Team Description 08/02/2024 5:36 PM CDT - 08/02/2024 9:40 PM CDT Emergency [facility] Emergency Department [address] [place] [address] Hypertension, unspecified type (Primary Dx); Chest pain, unspecified type Discharge Disposition: Discharge to home or self care 05/12/2024 10:02 AM DEICER INSPECTOR PNEUMATIC - 05/12/2024 11:59 PM DEICER INSPECTOR PNEUMATIC Hospital Encounter [facility] Imaging Center [address] [place] [address] Fever, unspecified fever cause; Acute cough; Lower respiratory infection Discharge Disposition: Discharge to home or self care 05/12/2024 8:45 AM DEICER INSPECTOR PNEUMATIC Office Visit [facility] at [address] [place] [address] Shonda Romo NP Suspected COVID-19 virus infection (Primary Dx); Sore throat; Fever, unspecified fever cause; Acute cough; Lower respiratory infection 05/12/2024 Telephone [facility] at [place] [address] [place] [address] Mable Dobbs MA from Last 3 Months Medical History Medical History Date Comments Hypertension Hyperlipidemia Family History Medical History Relation Name Comments Heart disease Mother Heart disease Mother's Brother Diabetes Other 1 Diabetes Mellit - (Added by TW Conv) Heart disease Other 2 Heart Disease - (Added by TW Conv) Relation Name Status Comments Mother Mother's Brother Other 1 Other 2 Social History Tobacco Use Types Packs/Day Years Used Date Smoking Tobacco: Former Personal Safety Answer Date Recorded Have you ever been in or are you currently in a harmful physical or emotional relationship or is someone making you feel afraid or unsafe? Denies 08/02/2024 Sex and Gender Information Value Date Recorded Sex Assigned at Not on file Legal Sex Male 10:10 AM DEICER INSPECTOR PNEUMATIC Gender Identity Male 05/24/2021 7:54 AM DEICER INSPECTOR PNEUMATIC Sexual Orientation Straight 05/24/2021 7: 54 AM DEICER INSPECTOR PNEUMATIC Obstetrics History Last Filed Vital Signs Vital Sign Reading [...] Height 182.9 cm (6') 05/12/2024 8:43 AM DEICER INSPECTOR PNEUMATIC Body Mass Index 27.12 05/12/2024 8:43 AM DEICER INSPECTOR PNEUMATIC Plan of Treatment Health Maintenance Due Date Last Done Comments Colon Cancer Screening-Colonoscopy 1965 Depression Screening 1965 Hepatitis C Screening 1965 Prostate Cancer Screening-PSA 1965 DTaP/Tdap/Td Vaccine (1 - Tdap) 07/31/1978 Hepatitis B Screening 07/31/1985 Regular Well Visit/Exam 18-64 07/31/1985 Zoster Vaccine (1 of 2) 07/31/2017 Covid-19 Vaccine (4 - 2023-2 5 season) 2024 03/30/2021, 08/22/2020, 07/30/2020 Influenza Vaccine (Season Ended) 2025 04/03/2019, 04/11/2018 Pneumococcal vaccine <65 Aged Out No longer eligible based on patient's age to complete this topic Procedures Procedure Name Priority Date/Time Associated Diagnosis [...] (Appt Today, Awaiting Results) 05/12/2024 10:13 AM DEICER INSPECTOR PNEUMATIC Fever, unspecified fever cause Acute cough Lower respiratory infection POC INFLUENZA A/B, COVID-19 ANTIGEN Routine 05/12/2024 8:55 AM DEICER INSPECTOR PNEUMATIC Suspected COVID-19 virus infection Sore throat POCT RAPID STREP Routine 05/12/2024 8:54 AM DEICER INSPECTOR PNEUMATIC Suspected COVID-19 virus infection Sore throat from Last 3 Months Results * Troponin T high-sensitivity 4-hour (08/02/2024 8:26 PM CDT) Trop T hs <6 <=22 ng/L Comment: Interpretive Data For further hscTnT resources including the diagnostic algorithm and an aid in interpretation, copy and paste this link: https://[employer].org/show/hsTrop Current Interpretive Data last revised 2020. Trop T hs delta 0 ng/L [facility] ([place]) Trop T hs interp Insignificant [facility] ([place]) Blood 08/02/2024 8:26 PM CDT 08/02/2024 8:45 PM CDT Moe Carpenter MD LAB BLOOD ORDERABLES Final R esult [facility] ([place]) 1 [facility] [place] [address] * Troponin T high-sensitivity 2-hour (08/02/2024 5:52 PM CDT) Trop T hs <6 <=22 ng/L Comment: Interpretive Data For further hscTnT resources including the diagnostic algorithm and an aid in interpretation, copy and paste this link: https://nrl.[employer].org/show/hsTrop Current Interpretive Data last revised 2020. Trop T hs delta 0 ng/L [facility] ([place]) Trop T hs interp Insignificant [facility] ([place]) Blood 08/02/2024 5:52 PM CDT 08/02/2024 5:56 PM CDT Moe Carpenter MD LAB BLOOD ORDERABLES Final R esult [facility] ([place]) 1 [facility] Department [place] [address] * XR Chest 1 Vw Portable (if [...] Arnoldo Araiza M.D. KR: HERNAN Report ID: [id number] Reading Location: [id number] Procedure Note Arnoldo Araiza MD - 08/02/2024 [...] Arnoldo Araiza M.D. KR: HERNAN Report ID: [id number] Reading Location: [id number] Moe Carpenter MD IMG XR PROCEDURES Final Resu lt * Troponin T high-sensitivity series (baseline, 2hr, 4hr, 6hr) (08/02/2024 4:21 PM CDT) Pathologist [facility] Trop T hs <6 <=22 ng/L Comment: Interpretive Data For further hscTnT resources including the diagnostic algorithm and an aid in interpretation, copy and paste this link: https://nrl.testcatalog.org/show/hsTrop Current Interpretive Data last revised 2020. Blood 08/02/2024 4:21 PM CDT 08/02/2024 4:38 PM CDT Moe Carpenter MD LAB BLOOD ORDERABLES Final R esult [facility] [place] [facility] Department [place] [address] * eGFR (08/02/2024 4:21 PM CDT) Pathologist [facility] eGFR >90 >=60 mL/min/1. 73 m2 Comment: [...] 4:21 PM CDT 08/02/2024 4:38 PM CDT us Moe Carpenter MD LAB BLOOD ORDERABLES Final R esult [facility] ([place]) 1 [facility] [place] [address] * (ABNORMAL) Differential, auto (08/02/2024 4:21 PM CDT) Neutrophil abs 4.58 1.50 - 6.50 K/cumm Imm gran abs 0.09 0.00 - 0.10 K/cumm [facility] ([place]) Lymphocyte abs 1.72 0.80 - 3.30 K/cumm [facility] ([place]) Monocyte abs 0.66 0.20 - 0.80 K/cumm [facility] ([place]) Eosinophil abs 0.16 0.00 - 0.50 K/cumm [facility] ([place]) Basophil abs 0.11(H) 0.00 - 0.10 K/cumm [facility] ([place]) Neutrophil pct 62.6 % [facility] ([place]) Comment: Interpretive Data Percent cell count reference ranges are not reported, since discordance with absolute values may lead to misinterpretation of CBC data. Current Interpretive Data was last revised on 2017. Imm gran pct 1.2 % [facility] ([place]) Comment: Interpretive Data Percent cell count reference ranges are not reported, since discordance with absolute values may lead to misinterpretation of CBC data. Current Interpretive Data was last revised on 2017. Lymphocyte pct 23.5 % [facility] ([place]) Comment: Interpretive Data Percent cell count reference ranges are not reported, since discordance with absolute values may lead to misinterpretation of CBC data. Current Interpretive Data was last revised on 2017. Monocyte pct 9.0 % [facility] ([place]) Comment: Interpretive Data Percent cell count reference ranges are not reported, since discordance with absolute values may lead to misinterpretation of CBC data. Current Interpretive Data was last revised on 2017. Eosinophil pct 2.2 % [facility] ([place]) Comment: Interpretive Data Percent cell count reference ranges are not reported, since discordance with absolute values may lead to misinterpretation of CBC data. Current Interpretive Data was last revised on 2017. Basophil pct 1.5 % [facility] ([place]) Comment: Interpretive Data Percent cell count reference ranges are not reported, since discordance with absolute values may lead to misinterpretation of CBC data. Current Interpretive Data was last revised on 2017. Blood 08/02/2024 4:21 PM CDT 08/02/2024 4:38 PM CDT us Moe Carpenter MD LAB BLOOD ORDERABLES Final R esult [facility] ([place]) 1 [facility] [place] [address] * (ABNORMAL) CBC with auto differential (08/02/2024 4:21 PM CDT) WBC 7.32 3.80 - 9.90 K/cumm Hgb 14.4 13.0 - 17.5 g/dL [facility] ([place]) Hct 41.1 38.9 - 50.3 % [facility] ([place]) Plt 317 150 - 400 K/cumm [facility] ([place]) MPV 8.5(L) 9.1 - 12.3 fL [facility] ([place]) RBC 4.49 4.30 - 5.80 M/cumm [facility] ([place]) MCV 91.5 81.3 - 96.4 fL [facility] ([place]) MCH 32.1 27.1 - 33.3 pg [facility] ([place]) MCHC 35.0 32.3 - 35.7 g/dL [facility] ([place]) RDW CV 12.1 11.1 - 14.9 % [facility] ([place]) RDW SD 40.4 35.7 - 48.1 fL [facility] ([place]) NRBC abs 0.00 0.00 - 0.01 K/cumm [facility] ([place]) Blood Venous blood specimen / Unknown 08/02/2024 4:21 PM CDT 08/02/2024 4:38 PM CDT Moe Carpenter MD LAB BLOOD ORDERABLES Final R esult [facility] ([place]) 1 [facility] [place] [address] * (ABNORMAL) Comprehensive metabolic panel (08/02/2024 4:21 PM CDT) Sodium 135 135 - 145 mmol/L Potassium, pl 3.8 3.3 - 4.9 mmol/L [facility] ([place]) Chloride 98 97 - 110 mmol/L [facility] ([place]) CO2 21(L) 22 - 32 mmol/L [facility] ([place]) Anion gap 16(H) 2 - 15 mmol/L [facility] ([place]) BUN 14 6 - 25 mg/dL [facility] ([place]) Creatinine 0.92 0.80 - 1.30 mg/dL [facility] ([place]) Glucose 101 70 - 199 mg/dL [facility] ([place]) Comment: Interpretive Data Fasting glucose >/= [...] ORDERABLES Final R esult Performing Organization Address City/[facility]/ZIP Co de Phone Number [facility] ([place]) 1 [facility] Department [place] [address] * ECG 12 lead (08/02/2024 4:15 PM CDT) 08/02/2024 4:15 PM CDT Narrative [facility] - 08/03/2024 7:16 AM CDT Vent Rate: 78 bpm RR Interval: 760 msec WI Interval: 165 msec QRS Duration: 106 msec QT Interval: 383 msec QTC Interval: 417 msec P-R-T Leland: 52 - -10 - 22 degrees IMPRESSION: SINUS RHYTHM WITH OCCASIONAL VENTRICULAR PREMATURE COMPLEXES BORDERLINE ECG Electronically Signed By: Trell Mac MD Moe Carpenter MD ECG ORDERABLES Final Result Performing Organization Address City/[facility]/ZIP Co de Phone Number [facility] [employer] [facility] * XR Chest Pa Lateral 2 Views (05/12/2024 10:13 AM DEICER INSPECTOR PNEUMATIC) Anatomical Region Laterality Modality Body, Chest N/A Computed Radiogr aphy 05/12/2024 10:4 6 AM DEICER INSPECTOR PNEUMATIC Narrative 05/12/2024 10:48 AM DEICER INSPECTOR PNEUMATIC EXAM DESCRIPTION: XR CHEST PA LATERAL 2 [...] 10:48 AM - Electronically signed by Arnoldo ELIZABETH: CLARA Report ID: [id number] Reading Location: [id number] Procedure Note Arnoldo Barajas MD - 05/12/2024 [...] 10:48 AM - Electronically signed by Arnoldo ELIZABETH: CLARA Report ID: [id number] Reading Location: [id number] Shonda Romo ENGINE INSTALLER IMG XR PROCEDURES Final Re sult * POC Influenza A/B, COVID-19 antigen (05/12/2024 8:55 AM DEICER INSPECTOR PNEUMATIC) Influenza A Ag, POC Negative Negative [facility] Influenza B Ag, POC Negative Negative [facility] COVID-19 Ag POC Presumptive Negative Presumptive Negative, Invalid [facility] Nasal 05/12/2024 8:55 AM DEICER INSPECTOR PNEUMATIC Shonda Romo NP POINT OF CARE TEST ORDERAB LES Final Result Performing Organization Address City/State/[facility] Co de Phone Number [facility] [address] [place] [address], [facility] * POCT rapid strep A (05/12/2024 8:54 AM DEICER INSPECTOR PNEUMATIC) Rapid Strep A, POC Negative Negative Swab 05/12/2024 8:54 AM DEICER INSPECTOR PNEUMATIC Shonda Romo NP POINT OF CARE TEST ORDERAB LES Final Result from Last 3 Months Insurance [facility] CHOICE PLUS [facility] [employer] Care Teams Supervisor Graphite Relationship Specialty Start Date End Date Noelle Pro DO PCP - General Family Medicine 05/13/21
--- NOTE | 2024-08-10 09:46 | EST_ITS ---
Patient Info Name: Cesar Hurtado Age: 59 years : 1965 Gender: Male Ht: 72 in Wt: 200 lbs BSA: 2.16 m2 HR: 74 bpm BP: 135 / 89 mmHg Exam Date: 08/10/2024 10:41 AM Exam Location: Echo Lab Patient Status: Outpatient Admit Date: 08/10/2024 Staff Ordering Physician: Kathia Taylor Attending Provider: Kathia Taylor Exercise Technologist: aresnio elizabeth Exercise Physician: Gonzalez Broussard DO Exam Type: CA stress test treadmill Study Info Indications R07.9 - Chest pain, unspecified A treadmill exercise stress test was performed. Summary 1. 1. Negative Matias exercise stress test for ischemic ST changes by ECG criteria. 2. 2. Good functional capacity, achieving 10 METs of workload. 3. 3. Appropriate HR response to exercise. 4. 4. Appropriate HR recovery at 1 minute post exercise. 5. 5. No imaging with stress testing. 6. 6. Patient informed of the above results. Protocol: Maitas Stress ECG Details Stage: REST Duration (min): 0 min : 25 sec Speed (mph): 0.0 Grade (%): 0 HR (bpm): 72 SBP (mmHg): --- DBP (mmHg): --- METS: --- Stage: REST Duration (min): 1 min : 0 sec Speed (mph): 0.0 Grade (%): 0 HR (bpm): 71 SBP (mmHg): 135 DBP (mmHg): 89 METS: --- Stage: REST Duration (min): 9 min : 3 sec Speed (mph): 0.0 Grade (%): 0 HR (bpm): 75 SBP (mmHg): 135 DBP (mmHg): 89 METS: --- Stage: REST Duration (min): 12 min : 18 sec Speed (mph): 0.0 Grade (%): 0 HR (bpm): 79 SBP (mmHg): 135 DBP (mmHg): 89 METS: --- Stage: STAGE 1 Duration (min): 1 min : 0 sec Speed (mph): 1.7 Grade (%): 10 HR (bpm): 107 SBP (mmHg): 135 DBP (mmHg): 89 METS: --- Stage: STAGE 1 Duration (min): 2 min : 0 sec Speed (mph): 1.7 Grade (%): 10 HR (bpm): 117 SBP (mmHg): 135 DBP (mmHg): 89 METS: --- Stage: STAGE 1 Duration (min): 3 min : 0 sec Speed (mph): 1.7 Grade (%): 10 HR (bpm): 116 SBP (mmHg): 166 DBP (mmHg): 94 METS: --- Stage: STAGE 2 Duration (min): 1 min : 0 sec Speed (mph): 2.5 Grade (%): 12 HR (bpm): 122 SBP (mmHg): 166 DBP (mmHg): 94 METS: --- Stage: STAGE 2 Duration (min): 2 min : 0 sec Speed (mph): 2.5 Grade (%): 12 HR (bpm): 128 SBP (mmHg): 168 DBP (mmHg): 93 METS: --- Stage: STAGE 2 Duration (min): 3 min : 0 sec Speed (mph): 2.5 Grade (%): 12 HR (bpm): 126 SBP (mmHg): 168 DBP (mmHg): 93 METS: --- Stage: STAGE 3 Duration (min): 1 min : 0 sec Speed (mph): 3.4 Grade (%): 14 HR (bpm): 136 SBP (mmHg): 197 DBP (mmHg): 93 METS: --- Stage: STAGE 3 Duration (min): 2 min : 0 sec Speed (mph): 3.4 Grade (%): 14 HR (bpm): 142 SBP (mmHg): 197 DBP (mmHg): 93 METS: --- Stage: STAGE 3 Duration (min): 2 min : 59 sec Speed (mph): 4.2 Grade (%): 16 HR (bpm): 148 SBP (mmHg): 196 DBP (mmHg): 93 METS: --- Stage: RECOVERY Duration (min): 1 min : 0 sec Speed (mph): 0.0 Grade (%): 0 HR (bpm): 123 SBP (mmHg): 196 DBP (mmHg): 93 METS: --- Stage: RECOVERY Duration (min): 2 min : 0 sec Speed (mph): 0.0 Grade (%): 0 HR (bpm): 106 SBP (mmHg): 196 DBP (mmHg): 93 METS: --- Stage: RECOVERY Duration (min): 2 min : 8 sec Speed (mph): 0.0 Grade (%): 0 HR (bpm): 101 SBP (mmHg): 196 DBP (mmHg): 93 METS: --- Rest HR: 79 bpm Peak HR: 149 bpm Rest Sys BP: 135 mmHg Peak Sys BP: 197 mmHg Max Pred HR: 163 bpm % Max Pred HR: 91 % Target HR: 139 bpm Max RPP: 29,353 bpm*mmHg Castro Score: 0 Termination Reason: Reached target heart rate or workload Cardiac Symptoms: Shortness of breath Max ST Seg Deviation: 1.90 mm Total Time: 9 min : 0 sec Rest White BP: 89 mmHg Peak White BP: 93 mmHg Angina Score: None Total METS: 10.3 Resting ECG Sinus rhythm. Stress ECG No ST changes. Arrhythmias None. Report Signatures
== END 2024-08-10 09:25 | disposition home or self-care (01) ==
PROVIDERS: PCP Family Medicine; Visit Provider Nurse Practitioner
DX: R07.9 Chest pain, unspecified (principal)
CPT/HCPCS: 93017